=== PATIENT | female | born 1980 | race Asian ===

== ENCOUNTER 2018-01-17 12:40 | Inpatient (IN) | payer SELFPAY ==
[~2018-01-17] VITALS: Ht 165 cm; Wt 71.2 kg
[2018-01-17 13:04] VITALS: BP_SYST 104
[2018-01-17] MEDS ORDERED: LR 1,000 ML IV ONE (13:27)
[2018-01-17] MEDS ORDERED: CEFAZOLIN 2 GM IVPB PREMIX 50 ML IV ONE (13:30)
[2018-01-17] MEDS ORDERED: TERBUTALINE SULFATE 1 MG/ML VIAL SUBCUT ONE (14:00)
[2018-01-17 14:01] LABS: BASOPHILS # (AUTO) 0.1 K/uL (0.0-0.2); BASOPHILS % (AUTO) 1.1 % (0.0-2.0); EOSINOPHILS % (AUTO) 0.5 % (0.0-4.0); HEMATOCRIT 39.6 % (36-48); HEMOGLOBIN 13.3 g/dL (12.0-16.0); LYMPHOCYTES # (AUTO) 1.7 K/uL (1.0-5.5); LYMPHOCYTES % (AUTO) 18.6 % (20.5-51.5); MEAN CORPUSCULAR HEMOGLOBIN 31 pg (27-31); MEAN CORPUSCULAR HGB CONC 34 % (32-36); MEAN CORPUSCULAR VOLUME 92 fL (79.0-98.0); MONOCYTES # (AUTO) 0.6 K/uL (0.0-1.0); MONOCYTES % (AUTO) 6.9 % (1.7-9.3); NEUTROPHILS # (AUTO) 6.5 K/uL (1.8-7.7); NEUTROPHILS % (AUTO) 72.9 % (40.0-70.0); PLATELET COUNT (AUTO) 183 K/uL (130-430); RED BLOOD CELL COUNT(AUTO) 4.32 MIL/uL (4.2-6.2); RED CELL DISTRIBUTION WIDTH 14.5 % (9.0-15.0); WHITE BLOOD COUNT (AUTO) 8.9 K/uL (4.8-10.8)
[2018-01-17] MEDS ORDERED: TERBUTALINE SULFATE 1 MG/ML VIAL ONE (14:05)
[2018-01-17 17:30] VITALS: BP_SYST 93
[2018-01-17] MEDS ORDERED: DIPHENHYDRAMINE INJ 50 MG/ML VIAL IVP PRN (17:30)
[2018-01-17] MEDS ORDERED: KETOROLAC TROMETHAMINE 60 MG/2 ML VIAL IM PRN (17:30)
[2018-01-17] MEDS ORDERED: fentaNYL CITRATE/PF 100 MCG/2 ML AMP IVP PRN ×2 (17:30)
[2018-01-17] MEDS ORDERED: NALOXONE HCL 0.4 MG/ML AMP (NARCAN) IVP PRN ×2 (17:30)
[2018-01-17] MEDS ORDERED: KETOROLAC TROMETHAMINE 30 MG VIAL IVP PRN (17:30)
[2018-01-17] MEDS ORDERED: ONDANSETRON HCL 4 MG/2 ML VIAL IVP PRN ×2 (17:30)
[2018-01-17] MEDS ORDERED: NALBUPHINE HCL 10 MG/ML AMP IVP PRN (17:30)
[2018-01-17] MEDS ORDERED: BUPIVACAINE /DEX PF 0.75% SPINAL 2 ML AMP INJ ONE (17:40)
[2018-01-17] MEDS ORDERED: NS IRRIG SOLN 1000 ML IR ONE (17:40)
[2018-01-17] MEDS ORDERED: LR 1,000 ML IV.SOLN IV ONE (17:40)
[2018-01-17] MEDS ORDERED: OXYTOCIN/0.9 % SODIUM CHLORIDE 1,000 ML IV ONE (20:06)
[2018-01-17] MEDS ORDERED: LR 1,000 ML IV SCH (20:06)
[2018-01-17] MEDS ORDERED: LANOLIN 7 GM OINT. TP PRN (20:15)
[2018-01-17] MEDS ORDERED: DIPH-TET-PERTUS Vaccine 0.5 ML VIAL (ADACEL) I.M. PRN (20:15)
[2018-01-17] MEDS ORDERED: RHO(D) IMMUNE GLOBULIN/MALTOSE 1500 UNITS/1.3 ML (WINHRO) IM PRN (20:15)
[2018-01-17] MEDS ORDERED: OXYCODONE/ACETAMINOPHEN 5-325 TABLET PO PRN (20:15)
[2018-01-17] MEDS ORDERED: HYDROcodone/ACETAMIN 5-325 MG TAB (NORCO/ VICODIN) PO PRN (20:15)
[2018-01-17] MEDS ORDERED: MEASLES,MUMPS&RUBELLA VACC/PF 12500 UNIT/0.5 ML VIAL SUBQ PRN (20:15)
[2018-01-17] MEDS ORDERED: SENNOSIDES/DOCUSATE SODIUM 1 TAB TABLET(SENOKOT-S) PO PRN (20:15)
[2018-01-17] MEDS ORDERED: ANUSOL 1 EA SUPP.RECT (PREPARATION H) RC PRN (20:15)
[2018-01-17] MEDS ORDERED: BISACODYL 10 MG/SUPPOSITORY RC PRN (20:15)
[2018-01-17] MEDS ORDERED: TEMAZEPAM 15 MG CAPSULE PO PRN (21:00)
[2018-01-17] MEDS: CEFAZOLIN 1 GM IVPB PREMIX 50 ML IV SCH (23:14)
[2018-01-18] MEDS: CEFAZOLIN 1 GM IVPB PREMIX 50 ML IV SCH ×2 (05:15→11:24)
[2018-01-18] MEDS: IBUPROFEN 600 MG TABLET PO SCH ×4 (06:00→23:52)
[2018-01-18 06:41] LABS: HEMATOCRIT 34.4 % (36-48); MEAN CORPUSCULAR HEMOGLOBIN 32 pg (27-31); MEAN CORPUSCULAR HGB CONC 35 % (32-36); MEAN CORPUSCULAR VOLUME 91 fL (79.0-98.0); PLATELET COUNT (AUTO) 137 K/uL (130-430); RED BLOOD CELL COUNT(AUTO) 3.77 MIL/uL (4.2-6.2); RED CELL DISTRIBUTION WIDTH 14.5 % (9.0-15.0); WHITE BLOOD COUNT (AUTO) 10.4 K/uL (4.8-10.8)
[2018-01-18 08:18] LABS: BAND % (MANUAL) 7 % (0-6); BASOPHILS % (MANUAL) 0 % (0-2); EOSINOPHILS % (MANUAL) 0 % (0-7); LYMPHOCYTES % (MANUAL) 17 % (20-46); MONOCYTES % (MANUAL) 10 % (0-11)
[2018-01-18] MEDS: OXYCODONE/ACETAMINOPHEN 5-325 TABLET PO PRN ×2 (12:23→18:21)
[2018-01-18] MEDS: DOCUSATE SODIUM 100 MG CAPSULE PO PRN ×2 (18:21→20:06)
[2018-01-18] MEDS: SIMETHICONE 80 MG TAB.CHEW PO PRN (20:06)
[2018-01-19] MEDS: IBUPROFEN 600 MG TABLET PO SCH ×2 (05:54→12:28)
[2018-01-19] MEDS: SIMETHICONE 80 MG TAB.CHEW PO PRN (12:27)
[2018-01-19] MEDS: DOCUSATE SODIUM 100 MG CAPSULE PO PRN ×2 (12:30→12:38)
== END 2018-01-19 16:10 | disposition home or self-care (01) | DRG 766 ==
LOC: SPU 12:40
PROVIDERS: ADMIT Obstetrics & Gynecology; ATTEND Obstetrics & Gynecology
PROC: 10D00Z1 Extraction of Products of Conception, Low, Open Approach (ICD-10-PCS; principal; 2018-01-17 16:00)
DX: O34.211 Maternal care for low transverse scar from previous cesarean delivery (principal); O69.81X0 Labor and delivery complicated by cord around neck, without compression, not applicable or unspecified; Z37.0 Single live birth; Z3A.39 39 weeks gestation of pregnancy
CPT/HCPCS: 36415; 85007; 85025; 85027; 86886; 86900; 86901; 94760; J0690; J1200; J1885; J2590; J3105; J3490; J7120